=== PATIENT | male | born 1940 | race Caucasian/White ===

== ENCOUNTER 2017-06-28 19:43 | Emergency (ER) | payer MEDICARE ==
[~2017-06-28] VITALS: Ht 180.3 cm; Wt 78.0 kg
[~2017-06-28 19:43] MED LIST: ATOR20TA42 PO; LANTUSP SQ; PERC7.5T13 PO; REPA2 PO; ROSI1TAB24 PO
[2017-06-28 19:51] VITALS: BP 119/70; PULSE 100; RESP 20; TEMP 98.2; O2SAT 95
[2017-06-28] MEDS ORDERED: SODIUM CHLORIDE 0.9% FLUSH 10 ML FLUSH IV FLUSH PRN (20:00)
--- NOTE | 2017-06-28 20:12 | PD ---
HPI Chief Complaint: Abdominal Pain Time Seen by Provider: 19:59 Travel History International Travel<30 days: No Contact w/Intl Traveler<30days: No Traveled to known affect area: No History of Present Illness HPI COMPLAINT OF LOWER ABD PAIN, SHARP, NONRAD, 07/02, NO ALLEVIATING/AGGRAVATING FACTORS, DENIES ANY ASSOCIATED FEVER/HEMATURIA/N/V/D/CP/BARRIENTOS/ AT THIS POINT PFSH Past Medical History Autoimmune Disease: No Blood Disorders: No Heart Rhythm Problems: No Cancer: No Cardiovascular Problems: Yes (x4 bypass) High Cholesterol: No Chest Pain: Yes Congestive Heart Failure: No Diabetes: Yes Endocrine: Yes Genitourinary: No Hypertension: No Musculoskeletal: No Neurologic: Yes Psychiatric: No Respiratory: No Myocardial Infarction: Yes ?: Not Past Surgical History Abdominal Surgery: No AICD: No Cardiac Surgery: Yes Ear Surgery: No Endocrine Surgery: No Eye Surgery: No Genitourinary Surgery: No Gynecologic Surgery: No Oral Surgery: Yes Pacemaker: No Thoracic Surgery: No Social History Alcohol Use: No Tobacco Use: No Substance Use: No Allergies-Medications (Allergen,Severity, Reaction): Coded Allergies: No Known Allergies (Verified Allergy, Unknown, 03/21/05) Reported Meds & Prescriptions Reported Meds & Active Scripts Active Reported Humalog Inj (Insulin Human Lispro) 1,000 Unit/10 Ml Vial 1-9 Units SQ ACHS Max dose at bedtime:( )units; sugars< 70,(0)units; sugars 150-199,(1)unit; sugars 200-249,(3)units; sugars 250-299,(5)units; sugars 300-349,(7)units; sugars more than 349,(9)units. Lantus Inj (Insulin Glargine) 100 Unit/Ml Inj Lovastatin 10 Mg Tab 10 Mg PO DAILY Lisinopril 2.5 Mg Tab 2.5 Mg PO DAILY Prednisone 5 Mg Tab 5 Mg PO DAILY Review of Systems Except as stated in HPI: all other systems reviewed are Neg Gastrointestinal: Positive: Abdominal Pain Physical Exam Narrative GENERAL: SKIN: Warm and dry. HEAD: Atraumatic. Normocephalic. EYES: Pupils equal and round. No scleral icterus. No injection or drainage. ENT: No nasal bleeding or discharge. Mucous membranes pink and moist. NECK: Trachea midline. No JVD. CARDIOVASCULAR: Regular rate and rhythm. RESPIRATORY: No accessory muscle use. Clear to auscultation. Breath sounds equal bilaterally. GASTROINTESTINAL: Abdomen soft, TTP TO SUPRAPUBIC AND LLQ ARE , nondistended. MUSCULOSKELETAL: Extremities without clubbing, cyanosis, or edema. No obvious deformities. NEUROLOGICAL: Awake and alert. No obvious cranial nerve deficits. Motor grossly within normal limits. Five out of 5 muscle strength in the arms and legs. Normal speech. PSYCHIATRIC: Appropriate mood and affect; insight and judgment normal. Data Data Last Documented VS Vital Signs Date Time Temp Pulse Resp B/P Pulse Ox O2 Delivery O2 Flow Rate FiO2 06/28/17 19:51 98.2 100 20 119/70 95 Orders Complete Blood Count With Diff (06/28/17 20:00) Comprehensive Metabolic Panel (06/28/17 20:00) Lipase (06/28/17 20:00) Prothrombin Time / Inr (Pt) (06/28/17 20:00) Act Partial Throm Time (Ptt) (06/28/17 20:00) Urinalysis - C+S If Indicated (06/28/17 20:00) Ct Abd/Pel W/O Iv Contrast (06/28/17 20:00) Iv Access Insert/Monitor (06/28/17 20:00) Ecg Monitoring (06/28/17 20:00) Oximetry (06/28/17 20:00) Sodium Chloride 0.9% Flush (Ns Flush) (06/28/17 20:00) Electrocardiogram (06/28/17 20:00) Ckmb (Isoenzyme) Profile (06/28/17 20:00) Troponin I (06/28/17 20:00) Hydromorphone Pf Inj (Dilaudid Pf Inj) (06/28/17 21:00) Labs Laboratory Tests Test 06/28/17 20:05 White Blood Count 10.5 TH/MM3 Red Blood Count 4.11 MIL/MM3 Hemoglobin 13.1 GM/DL Hematocrit 41.1 % Mean Corpuscular Volume 100.0 FL Mean Corpuscular Hemoglobin 31.9 PG Mean Corpuscular Hemoglobin 31.9 % Concent Red Cell Distribution Width 17.0 % Platelet Count 319 TH/MM3 Mean Platelet Volume 7.6 FL Neutrophils (%) (Auto) 90.5 % Lymphocytes (%) (Auto) 3.9 % Monocytes (%) (Auto) 3.9 % Eosinophils (%) (Auto) 0.6 % Basophils (%) (Auto) 1.1 % Neutrophils # (Auto) 9.5 TH/MM3 Lymphocytes # (Auto) 0.4 TH/MM3 Monocytes # (Auto) 0.4 TH/MM3 Eosinophils # (Auto) 0.1 TH/MM3 Basophils # (Auto) 0.1 TH/MM3 CBC Comment DIFF FINAL Differential Comment Prothrombin Time 10.8 SEC Prothromb Time International 1.0 RATIO Ratio Activated Partial 24.6 SEC Thromboplast Time Sodium Level 135 MEQ/L Potassium Level 4.5 MEQ/L Chloride Level 101 MEQ/L Carbon Dioxide Level 25.1 MEQ/L Anion Gap 9 MEQ/L Blood Urea Nitrogen 15 MG/DL Creatinine 1.10 MG/DL Estimat Glomerular Filtration 65 ML/MIN Rate Random Glucose 189 MG/DL Calcium Level 9.4 MG/DL Total Bilirubin 1.2 MG/DL Aspartate Amino Transf 23 U/L (AST/SGOT) Alanine Aminotransferase 24 U/L (ALT/SGPT) Alkaline Phosphatase 117 U/L Total Creatine Kinase 39 U/L Troponin I LESS THAN 0.02 NG/ML Total Protein 7.8 GM/DL Albumin 3.7 GM/DL Lipase 248 U/L [facility] Medical Decision Making Medical Screen Exam Complete: Yes Emergency Medical Condition: Yes Medical Record Reviewed: Yes Interpretation(s) NSR 73, RBBB PATTERN, NO CONCORDANCE AND NO STEMI PATTERN Differential Diagnosis COLITIS V DIVERTIC V KIDNEY STONE Narrative Course PATIENT HAD NO ANEMIA, NO ELEVATED WHITE COUNT, NL ELECTROLYTES WELL NL CARDIAC ENZYMES, NO STEMI ON EKG, AND CT SHOWED DIVERTICULOSIS Diagnosis Primary Impression: DIVERTICULOSIS Patient Instructions: Diverticulitis Diet (ED), General Instructions Scripts Tramadol (Ultram)50 Mg Tab50 Mg PO Q4H PRN (PAIN) #28 TAB Prov:Jordy Alexandre MD 06/28/17 Metronidazole (Flagyl)500 Mg [id number] Mg PO TID #21 TAB Prov:Jordy Alexandre MD 06/28/17 Ciprofloxacin 500 Mg [id number] Mg PO BID #14 TAB Prov:Jordy Alexandre MD 06/28/17 Disposition: 01 DISCHARGE HOME Condition: Stable Jordy Alexandre MD Jun 28, 2017 20:12
[2017-06-28 20:14] LABS: AUTOMATED NEUTROPHIL # 9.5 TH/MM3 (1.8-7.7); BASOPHIL # 0.1 TH/MM3 (0-0.2); BASOPHIL % 1.1 % (0.0-2.0); EOSINOPHIL # 0.1 TH/MM3 (0-0.4); EOSINOPHIL % 0.6 % (0.0-4.0); HEMATOCRIT 41.1 % (39.0-51.0); LYMPH % 3.9 % (9.0-44.0); LYMPHOCYTE # 0.4 TH/MM3 (1.0-4.8); MEAN CORPUSCULAR HEMOGLOBIN 31.9 PG (27.0-34.0); MEAN CORPUSCULAR HGB CONC 31.9 % (32.0-36.0); MONO % 3.9 % (0.0-8.0); NEUT % 90.5 % (16.0-70.0); PLATELET COUNT 319 TH/MM3 (150-450); RED BLOOD COUNT 4.11 MIL/MM3 (4.50-5.90); WHITE BLOOD COUNT 10.5 TH/MM3 (4.0-11.0)
[2017-06-28 20:20] LABS: CHLORIDE 101 MEQ/L (98-107); POTASSIUM 4.5 MEQ/L (3.5-5.1); SODIUM (NA) 135 MEQ/L (136-145)
[2017-06-28 20:22] LABS: HEMO FLAGS DIFF FINAL
[2017-06-28 20:24] LABS: ANION GAP 9 MEQ/L (5-15); BICARBONATE 25.1 MEQ/L (21.0-32.0)
[2017-06-28] MEDS ORDERED: LISI2.5T3 PO (20:24)
[2017-06-28] MEDS ORDERED: LANTUS2P (20:24)
[2017-06-28] MEDS ORDERED: LOVA10TA PO (20:24)
[2017-06-28] MEDS ORDERED: HUMALOG SQ (20:24)
[2017-06-28] MEDS ORDERED: PRED5TAB PO (20:24)
[2017-06-28 20:25] LABS: BLOOD UREA NITROGEN 15 MG/DL (7-18)
[2017-06-28 20:26] LABS: APTT (PATIENT) 24.6 SEC (24.3-30.1); PROTHROMBIN TIME - PATIENT 10.8 SEC (9.8-11.6)
[2017-06-28 20:27] LABS: ALT (GPT) 24 U/L (12-78); AST (GOT) 23 U/L (15-37); GLOMERULAR FILTRATION RATE 65 ML/MIN (>89)
[2017-06-28 20:29] LABS: TOTAL BILIRUBIN ADULT 1.2 MG/DL (0.2-1.0)
[2017-06-28 20:30] LABS: ALKALINE PHOSPHATASE 117 U/L (45-117)
--- NOTE | 2017-06-28 20:52 | RADRPT ---
EXAM DATE/TIME: 06/28/2017 20:10 [place] COMPARISON: No previous studies available for comparison. INDICATIONS : Lower abdominal pain starting today. ORAL CONTRAST: No oral contrast ingested. RADIATION DOSE: 12.58 CTDIvol (mGy) MEDICAL HISTORY : Cardiovascular disease. Diabetes mellitus type 2. SURGICAL HISTORY : TURP x 1 month ago. ENCOUNTER: Initial ACUITY: 1 day PAIN SCALE: 10/10 LOCATION: Bilateral lower quadrant TECHNIQUE: Volumetric scanning of the abdomen and pelvis was performed. Using automated exposure control and ad justment of the mA and/or kV according to patient size, radiation dose was kept as low as reasonably achievable to obtain optimal diagnostic quality images. DICOM format image data is available electro nically for review and comparison. 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 No acute findings in the liver, spleen, adrenals, right kidney or pancreas. The left kidney is a pelv ic kidney with small nonobstructing calcifications.. Small bilateral renal cysts present. There is colonic diverticulosis without evidence for diverticulitis. Prostate is enlarged. No bowel obstruction or free fluid. Mild ileus. No free air. CONCLUSION: 1. No acute findings within the abdomen and pelvis except for mild ileus. Nonobstructing calcificatio ns in pelvic left kidney. Colonic diverticulosis without diverticulitis. 2. 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 3. Previous cholecystectomy. No bowel obstruction. Mild ileus. Bala Shelton MD on June 28, 2017 at 20:45 Board Certified Radiologist. This report was verified electronically.
[2017-06-28 20:55] LABS: CREATINE KINASE 39 U/L (39-308)
[2017-06-28] MEDS ORDERED: HYDROmorphone HCL PF 1 MG/ML VIAL IV PUSH ONE (21:00)
[2017-06-28] MEDS ORDERED: METR-1 PO (21:04)
[2017-06-28] MEDS ORDERED: CIPR500T2 PO (21:04)
[2017-06-28] MEDS ORDERED: ULTR50TA5 PO (21:04)
[2017-06-28] MEDS ORDERED: KETOROLAC TROMETHAMINE 30 MG/ML (IVP) VIAL IV PUSH ONE (21:15)
[2017-06-28] MEDS ORDERED: CIPROFLOXACIN 500 MG TAB PO ONE (21:15)
[2017-06-28] MEDS ORDERED: metroNIDAZOLE 500 MG TAB PO ONE (21:15)
[2017-06-28 22:22] VITALS: BP 123/68
[2017-06-28 22:25] LABS: BLOOD, URINE SMALL (NEG); GLUCOSE,URINE NEG (NEG); KETONE, URINE NEG (NEG); NITRITE,URINE NEG (NEG); PH, URINE 7.5 (5.0-8.5)
[2017-06-28 22:38] LABS: URINE COLOR YELLOW (YELLW/STRAW)
[2017-06-28 22:40] LABS: BACTERIA, URINE RARE /hpf; COMMENT (UR) CULTURE INDICATED; CULTURE IF INDICATED CULTURE INDICATED; SQUAMOUS EPITHELIAL CELL URINE 0-5 /hpf (0-5)
--- NOTE | 2017-06-29 16:29 | EKG ---
Date Performed: 06/28/2017 Time Performed: 20:10:40 PTAGE: 76 years EKG: Sinus rhythm WITH SINUS ARRHYTHMIA POSSIBLE LEFT ATRIAL ENLARGEMENT RIGHT BUNDLE BRANCH BLOCK LEFT ANTERIOR FASCI CULAR BLOCK ABNORMAL ECG PREVIOUS TRACING : 10/08/2009 17.32 Since previous tracing, no significant change noted DOCTOR: Alberto Reyna Interpretating Date/Time 06/29/2017 16:27:50
== END 2017-06-28 22:25 | disposition home or self-care (01) ==
LOC: PHED 19:43
DX: K57.90 Diverticulosis of intestine, part unspecified, without perforation or abscess without bleeding (principal); R94.31 Abnormal electrocardiogram [ECG] [EKG]
CPT/HCPCS: 74176; 80053; 81001; 82550; 83690; 84484; 85025; 85610; 85730; 87086; 93005; 96374; 96375; 99285; J1170; J1885